=== PATIENT | female | born 2000 | race Caucasian/White ===

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

== ENCOUNTER 2023-02-28 18:26 | Emergency (ER) | payer MEDICAID, SELFPAY ==
[2023-02-28 18:28] VITALS: BP 137/88; PULSE 86; RESP 15; TEMP 36.1; O2SAT 98; BMI 18.8
--- NOTE | 2023-02-28 18:41 | EX.ED.DYSGE1 ---
HPI History of Present Illness Chief Complaint: Other, Pain/Inj Detail of Chief Complaint: I might be . Informant: patient Narrative Narrative: 22-year-old female history of anemia. G1, P1, Ab0. Is concerned she may be . She is sexually active. Was told her male partner had a vasectomy. She has irregular menstrual cycles to begin with. Her last menstrual period was November 30. Denies any pain. No bleeding. She has not been sick. Prior similar symptoms: Yes Recent Illness/Hospitalization: No PFSH PFSH Medical History Anemia affecting First degree perineal laceration Poor social situation Precipitous delivery Trichomonal vaginitis during in second trimester Vaginal delivery Home Medications NK 02/28/23 [History Last Taken Unknown] Allergy/AdvReac Type Severity Reaction Status Date / Time No Known Allergies Allergy Verified 02/28/23 18:31 Social History Smoking Status: Never smoker ROS ROS ED ROS Narrative Denies recent illness. Review of Systems ROS Unobtainable: Denies due to encephalopathy Constitutional Constitutional ED: Denies chills or fever(s) Eyes Eyes: Denies blurry vision ENT ENT ED: Denies ear pain Cardiovascular Cardiovascular: Denies chest pain Respiratory/Chest Respiratory/Chest: Denies cough Gastrointestinal Gastrointestinal: Denies abdominal pain Genitourinary Genitourinary ED: Denies dysuria Musculoskeletal Musculoskeletal: Denies arthralgias Integumentary Denies abscess Neurologic Neurologic: Denies headache(s) Psychiatric Psychiatric: Denies anxiety Endocrine Endocrinology: Denies cold intolerance Hematologic/Lymphatic Hematologic/Lymphatic: Reports anemia Allergic/Immunologic Allergic/Immunologic ED: Denies mouth swelling or tongue swelling EXAM Physical Exam Narrative Exam Narrative: 22-year-old female vital signs stable afebrile. No distress. Sitting upright in bed. Female friend present in room. HEENT exam unremarkable. Lungs clear. Heart regular rhythm no murmur. Abdomen soft nontender. Moving all 4 extremities. Nontender no edema. She is awake and alert. Const Vital Signs: 02/28/23 18:28 Temperature 96.9 F L Temperature Source Temporal Pulse Rate 86 Respiratory Rate 15 Blood Pressure 137/88 H Blood Pressure Mean 104 Pulse Ox 98 Oxygen Delivery Method Room Air Positive well nourished, well developed and unkempt; Negative for obese, cachectic or contractures General Appearance ED: unkempt and well developed; Negative for cachectic, contractures, cyanotic, diaphoretic, NAD or pallor Nutritional Appearance: Negative for cachectic or obese HEENT Reports moist mucous membranes Negative for trauma or tenderness Eyes PERRL and EOMs intact bilaterally General Eye ED: Negative for pale conjunctiva or scleral icterus Neck no lymphadenopathy, supple and no JVD General: Negative for tenderness Lymph Lymphatic: Negative for other Chest Wall inspection of chest normal and palpation of chest normal Chest: Negative for other Resp normal respiratory effort and clear to auscultation bilaterally Effort and Inspection: Negative for retractions Auscultation: Negative for rales, rhonchi or wheezes Cardio regular rate, regular rhythm, S1 normal heart sound, S2 normal heart sound and no murmurs Palpation: Negative for palpable S3 or palpable S4 Rate: Negative for bradycardia Rhythm: Negative for abnormal rhythm GI normal to inspection, nondistended, normoactive bowel sounds, non-tender, non-distended and no masses Inspection: Negative for abdominal distention Auscultation: normoactive bowel sounds Palpation: soft; Negative for tender or guarding Back/Spine no CVA tenderness General Back: Negative for CVA tenderness Cervical Spine: Negative for cervical spine tenderness Thoracic Spine / Upper Back: Negative for thoracic spinal tenderness Lumbar Spine / Lower Back: Negative for lumbar spinal tenderness Extremity normal to inspection General Extremety ED: Negative for edema or tenderness General Extremity: Negative for edema Neuro oriented x3 and CN's II-XII intact bilaterally Sensorium / Orientation: alert; Negative for orientation impaired, lethargic or stuporous Motor Exam: strength 5/5 throughout Psych mental status grossly normal Appearance: unkempt Attitude: No agitated Mood & Affect: Negative for depressed, anxious or tearful Skin no rashes or lesions noted, no wounds and skin turgor normal General Skin Exam: elasticity normal; Negative for jaundice or pallor Lesions: No lesion noted Rashes: No rashes noted Trauma: Negative for abrasion Wounds: Negative for wounds noted MDM MDM MDM Narrative Medical decision making narrative: 22-year-old female no complaints wants a test. Repeat exam patient doing well at 7:48 PM. She was notified that her test was positive. It is hard to tell exactly by dates because she has irregular menstrual cycles and her last menstrual period was end of November. She was instructed follow-up with [facility]. History & Record Review Discussion w/independent historian: Patient Lab Data Attestation: I reviewed the patient's lab results. Lab results narrative: Urine test positive. Labs: Laboratory Results - last 24 hr 02/28/23 19:00 Urine Test Positive H Discharge Plan Triage Chief Complaint: Other, Pain/Inj ED Midlevel Provider: Dario Rodriguez ED Provider: Donovan Loera Dx/Rx/DC Orders Clinical Impression: First trimester Instructions: 1st Trimester Prescriptions: No Action NK Primary Care Provider: Care Physician,No Primary Referrals: Eulalia Wiggins DO [Med Staff - Active Staff] - As soon as possible Care Physician,No Primary [Primary Care Provider] - Activity Restrictions/Additional Instructions: Your urine test was positive. Call and follow-up with local [facility] to start care and further evaluation for your . Disposition Disposition: Home, Self Care
[2023-02-28 19:39] LABS: Pregnancy, Urine Positive Negative
[2023-02-28 19:41] LABS: Internal QC Validated? YES +Cl - CLEAR BKGD
[2023-02-28 19:51] VITALS: BP 118/76; PULSE 59; RESP 16; O2SAT 98
== END 2023-02-28 19:51 | disposition home or self-care (01) ==
PROVIDERS: Emergency Provider Emergency Medicine; Visit Provider Emergency Medicine
DX: Z32.01 Encounter for pregnancy test, result positive (principal); N92.6 Irregular menstruation, unspecified
CPT/HCPCS: 81025; 99283